=== PATIENT | female | born 1995 | race Caucasian/White ===

== ENCOUNTER 2016-06-10 18:02 | Emergency (ER) | payer OTHER ==
[2016-06-10 18:21] VITALS: BP 135/72
--- NOTE | 2016-06-10 18:49 | UC ---
Dental HPI - HPI Summary HPI Summary: C/o pain & swelling to right side of lower jaw x2 days. Pt has broken teeth in the area due to poor dental care as a child. She is here with ADRIAN Oh. Sx got worse this morning. No fevers or chills, but does note swelling in area. No obvious abscess. Denies . She is nursing 1 mo old baby. Feels fine otherwise. - History of Current Complaint Chief Complaint: UCDentalProblem Stated Complaint: MOUTH INFECTION Time Seen by Provider: 06/10/16 18:48 Hx Last Menstrual Period: 1 yr ago - had a baby 1 mo ago & - Allergies/Home Medications Allergies/Adverse Reactions: Allergies Allergy/AdvReac Type Severity Reaction Status Date / Time No Known Allergies Allergy Verified 06/10/16 18:15 Home Medications: Home Medications Ibuprofen TAB* [Advil TAB*] 400 mg PO Q6H PRN 06/10/16 [History Confirmed ] PMH/Surg Hx/FS Hx/Imm Hx Previously Healthy: Yes - Surgical History Surgical History: Yes Surgery Procedure, Year, and Place: tonsillectomy - Family History Known Family History: Positive: Diabetes - GM - Social History Alcohol Use: None Substance Use Type: None Smoking Status (MU): Light Every Day Tobacco Smoker Type: Cigarettes Amount Used/How Often: 2-3 cigarettes a day Length of Time of Smoking/Using Tobacco: 4 yrs Review of Systems Constitutional: Negative Skin: Negative Eyes: Negative ENT: Dental Pain Respiratory: Negative Cardiovascular: Negative Gastrointestinal: Negative Genitourinary: Negative Motor: Negative Neurovascular: Negative Musculoskeletal: Negative Neurological: Negative Psychological: Negative All Other Systems Reviewed And Are Negative: Yes Physical Exam Triage Information Reviewed: Yes Appearance: Well-Appearing, Well-Nourished, Pain Distress - mild - moderate Vital Signs: Initial Vital Signs Temp 99.0 F 06/10/16 18:16 Pulse 68 06/10/16 18:16 Resp 16 06/10/16 18:16 BP 135/72 06/10/16 18:16 Pulse Ox 100 06/10/16 18:16 Vital Signs Reviewed: Yes Eye Exam: Normal Eyes: Positive: Conjunctiva Clear ENT: Positive: Hearing grossly normal, Pharynx normal, TMs normal. Negative: Pharyngeal erythema, Nasal drainage, Tonsillar swelling, Tonsillar exudate Dental: Positive: Dental Fracture @ - #26 & #27 (front lower rt teeth). tender at gum line with small abscess at base of 27. Neck: Positive: Supple, Other: - tender at right anterior cx neck and rt mandible.. Negative: Nuchal Rigidity Respiratory Exam: Normal Respiratory: Positive: Lungs clear, Normal breath sounds, No respiratory distress, No accessory muscle use Cardiovascular Exam: Normal Cardiovascular: Positive: RRR, No Murmur, Pulses Normal, Brisk Capillary Refill Abdominal Exam: Normal Abdomen Description: Positive: Nontender, Soft Musculoskeletal Exam: Normal Neurological Exam: Normal Psychological Exam: Normal Skin Exam: Normal Dental Complaint Course/Dx - Differential Dx/Diagnosis Differential Diagnosis/Dx: Dental Abscess, Dental Caries, Fractured Tooth, Mandibular Trauma, Maxillary Trauma, Peridontic Disease Provider Diagnoses: Dental fracture, dental abscess Discharge - Discharge Plan Condition: Stable Disposition: HOME Prescriptions: Amoxicillin (*) [Amoxicillin 875 MG (*)] 875 mg PO BID #20 tab Patient Education Materials: Dental Abscess (ED) Referrals: No Primary Care Phys,NOPCP [Primary Care Provider] - Additional Instructions: We have given you a list of dentists - make sure to call one tomorrow for follow up. Make sure you take a probiotc every day while you are on the antibiotics.
== END 2016-06-10 19:05 | disposition home or self-care (01) ==
LOC: UCCORT 18:02
DX: K03.81 Cracked tooth (principal); K02.9 Dental caries, unspecified; K04.7 Periapical abscess without sinus; F17.210 Nicotine dependence, cigarettes, uncomplicated
CPT/HCPCS: 99212; G0463

== ENCOUNTER 2016-12-01 16:49 | Emergency (ER) | payer OTHER ==
[2016-12-01 17:34] VITALS: BP 105/64
--- NOTE | 2016-12-01 17:46 | UC ---
Throat Pain/Nasal Juan Miguel HPI - HPI Summary HPI Summary: 21F presents with nasal congestion for a day. She states that he son is sick with similar symptoms and she does not want to be sick when he is getting better. she denies any cough, ear pain, sore throat, abdominal pain, n/v/d or fever. has not tried anything. - History of Current Complaint Chief Complaint: UCRespiratory Stated Complaint: COLD Time Seen by Provider: 12/01/16 17:19 Hx Last Menstrual Period: "last week" - Allergies/Home Medications Allergies/Adverse Reactions: Allergies Allergy/AdvReac Type Severity Reaction Status Date / Time No Known Allergies Allergy Verified 12/01/16 17:30 Home Medications: Home Medications medroxyPROGESTERone ACETATE* [DEPO-Provera] 150 mg IM SEE INSTRUCTIONS 12/01/16 [History Confirmed 12/01/16] PMH/Surg Hx/FS Hx/Imm Hx Endocrine History: Other Other Endocrine History: no DM Cardiovascular History: Other Other Cardiovascular History: no HTN - Surgical History Surgical History: Yes Surgery Procedure, Year, and Place: tonsillectomy - Family History Known Family History: Positive: Diabetes - GM - Social History Alcohol Use: None Substance Use Type: None Smoking Status (MU): Former Smoker Type: Cigarettes Amount Used/How Often: 2-3 cigarettes a day Length of Time of Smoking/Using Tobacco: 4 yrs - Immunization History Most Recent Influenza Vaccination: Not the 2016/2017 Season Review of Systems Constitutional: Negative ENT: Sinus Congestion Respiratory: Negative Cardiovascular: Negative All Other Systems Reviewed And Are Negative: Yes Physical Exam Triage Information Reviewed: Yes Appearance: Well-Appearing Vital Signs: Initial Vital Signs Temp 97.9 F 12/01/16 17:30 Pulse 80 12/01/16 17:30 Resp 16 12/01/16 17:30 BP 105/64 12/01/16 17:30 Pulse Ox 99 12/01/16 17:30 Vital Signs Reviewed: Yes Eyes: Positive: Conjunctiva Clear ENT: Positive: Pharynx normal, Nasal congestion, TMs normal Neck: Positive: Supple, Nontender, No Lymphadenopathy Respiratory: Positive: Lungs clear, Normal breath sounds Cardiovascular: Positive: RRR Abdomen Description: Positive: Nontender, Soft Bowel Sounds: Positive: Present Musculoskeletal Exam: Normal Neurological Exam: Normal Psychological Exam: Normal Skin Exam: Normal Throat Pain/Nasal Course/Dx - Course Course Of Treatment: 21F presents with nasal congestion for a day. She states that he son is sick with similar symptoms and she does not want to be sick when he is getting better. she denies any cough, ear pain, sore throat, abdominal pain, n/v/d or fever. has not tried anything. lungs CTA. nose sinus congestion present. will treat with flonase. patient understands and agrees with plan. - Differential Dx/Diagnosis Differential Diagnosis/HQI/PQRI: Influenza, Sinusitis, URI Provider Diagnoses: rhinosinusitis Discharge - Discharge Plan Condition: Good Disposition: HOME Prescriptions: Fluticasone NASAL SPRAY 50MCG* [Flonase NASAL SPRAY 50MCG*] 1 spray BOTH NARES DAILY #1 btl Patient Education Materials: Rhinosinusitis (ED) Referrals: [facility] [Outside] Additional Instructions: Use saline spray in nose as much as needed Use humidifier in room or can use warm water in bowls Use intranasal steroid one spray each nostril twice a day Take Tylenol or ibuprofen for headache every 6 hours Establish care with primary to follow up with Return to ED if develop any new or worsening symptoms
== END 2016-12-01 18:01 | disposition home or self-care (01) ==
LOC: UCCORT 16:49
DX: J32.9 Chronic sinusitis, unspecified (principal); Z87.891 Personal history of nicotine dependence
CPT/HCPCS: 99212; G0463

== ENCOUNTER 2017-11-04 16:01 | Emergency (ER) | payer OTHER ==
--- NOTE | 2017-11-04 16:19 | UC ---
Throat Pain/Nasal Juan Miguel HPI - HPI Summary HPI Summary: 22 yo female presents with sore throat and right tooth pain with jaw swelling. She tells me that about a week ago she noticed some right lower jaw swelling and tooth pain - she knows that she has a broken tooth in this area. She has a dentist, but does not like to go because she hates dentists. She had an old prescription of Augmentin at home that she has been taking one pill once a day for a week - with no change in symptoms. She is able to eat and drinking without much difficulty. She is also concerned that she may be and is requesting a test today. Her last period was more than 30 days ago and she has had unprotected intercourse in this time. Denies fever, chills, cough, SOB, chest pain, n/v, or rash. - History of Current Complaint Stated Complaint: SORE/SWOLLEN THROAT Time Seen by Provider: 11/04/17 16:19 Hx Last Menstrual Period: "last week" Onset/Duration: Sudden Onset Severity: Mild Pain Intensity: 3 Pain Scale Used: 0-10 Numeric - Allergies/Home Medications Allergies/Adverse Reactions: Allergies Allergy/AdvReac Type Severity Reaction Status Date / Time No Known Allergies Allergy Verified 11/04/17 16:17 Home Medications: Home Medications Amoxicillin PO (*) [Amoxicillin 875 MG (*)] 437.5 mg PO BID 11/04/17 [History Confirmed 11/04/17] Buprenorphine/Naloxone SL TAB* [Suboxone 8-2 mg SL TAB*] 1 tab.sl SL BID [History Confirmed 11/04/17] Glecaprevir/Pibrentasvir [Mavyret 100-40 mg Tablet] 3 each PO DAILY 11/04/17 [ History Confirmed 11/04/17] PMH/Surg Hx/FS Hx/Imm Hx - Additional Past Medical History Additional PMH: Hep C - Surgical History Surgical History: Yes Surgery Procedure, Year, and Place: tonsillectomy - Family History Known Family History: Positive: Diabetes - GM - Social History Lives: With Family Alcohol Use: None Substance Use Type: None Smoking Status (MU): Former Smoker Type: Cigarettes Amount Used/How Often: 2-3 cigarettes a day Length of Time of Smoking/Using Tobacco: 4 yrs - Immunization History Most Recent Influenza Vaccination: Not the Season Review of Systems Constitutional: Negative Skin: Negative Eyes: Negative ENT: Dental Pain, Sore Throat Respiratory: Negative Cardiovascular: Negative Gastrointestinal: Negative Neurovascular: Negative Neurological: Negative Psychological: Negative All Other Systems Reviewed And Are Negative: Yes Physical Exam - Summary Physical Exam Summary: GENERAL: NAD. WDWN. No pain distress. SKIN: No rashes, sores, lesions, or open wounds. HEENT: Head: AT/NC Nose: Nasal mucosa pink and moist. NTTP maxillary and frontal sinus. Throat: Posterior oropharynx without exudates, erythema, or tonsillar enlargement. Uvula midline. NECK: Supple. RIGHT LOWER JAW with moderate edema and TTP. Right anterior cervical lymph node 1.0cm in size mild TTP. CHEST: CTAB. No r/r/w. No accessory muscle use. Breathing comfortably and in no distress. CV: RRR. Without m/r/g. Pulses intact. Cap refill <2seconds NEURO: Alert. PSYCH: Age appropriate behavior. Triage Information Reviewed: Yes Vital Signs: Vital Signs: Temp Pulse Resp BP Pulse Ox 97.9 F 80 16 127/67 100 11/04/17 16:14 11/04/17 16:14 11/04/17 16:14 11/04/17 16:14 11/04/17 16:14 Vital Signs Reviewed: Yes Dental: Positive: Percussion Tenderness @ - Tooth 31, Gross Decay/Caries @ - Throughout, Dental Fracture @ - Tooth 31, Abscess @ - Tooth 31. Negative: Cellulitis @, Cervical Lymphadenopathy, Bleeding Throat Pain/Nasal Course/Dx - Course Course Of Treatment: Tooth 31 abscess. Given her improper use of Augmentin, this makes antibiotic selection more challenging. I strongly encouraged her to schedule a f/u appointment with a dentist. Will have her take her Augmentin BID for 7 days or until she runs out of medication and will add Doxycycline BID. If her swelling/pain worsen she should go to the ED for further eval and treatment. - Differential Dx/Diagnosis Provider Diagnoses: Tooth 31 abscess Discharge - Sign-Out/Discharge Documenting (check all that apply): Patient Departure All imaging exams completed and their final reports reviewed: No Studies - Discharge Plan Condition: Stable Disposition: HOME Prescriptions: DOXYcycline CAP(*) [DOXYcycline 100MG CAP(*)] 100 mg PO BID #20 cap Patient Education Materials: Dental Abscess (ED) Referrals: No Primary Care Phys,NOPCP [Primary Care Provider] - Additional Instructions: If you develop a fever, shortness of breath, chest pain, new or worsening symptoms - please call your PCP or go to the ED. 1) Continue taking your Augmentin 1 tablet TWICE A DAY until completed 2) If your symptoms worsen - please go to the ER - Billing Disposition and Condition Condition: STABLE Disposition: Home
[2017-11-04 16:26] VITALS: BP 127/67
== END 2017-11-04 16:58 | disposition home or self-care (01) ==
LOC: UCCORT 16:01
DX: K04.7 Periapical abscess without sinus (principal); B19.20 Unspecified viral hepatitis C without hepatic coma; Z87.891 Personal history of nicotine dependence
CPT/HCPCS: 84702; 87651; 99212; G0463

== ENCOUNTER → 2018-01-21 18:01 | Emergency (ER) | payer OTHER ==
[~2018-01-21 18:01] MED LIST: Polymyx/Trimethoprim OPTH* 10 ML BTL RIGHT EYE ONE
--- NOTE | 2018-01-21 18:12 | UC ---
Eye Complaint HPI - HPI Summary HPI Summary: awoke with right eye slightly swollen injected, clear drainage---no contacts or visual deficits - History of Current Complaint Chief Complaint: UCEye Stated Complaint: RT EYE COMPLAINT Time Seen by Provider: 01/21/18 18:06 Hx Obtained From: Patient Hx Last Menstrual Period: end of last month ?: No Onset/Duration: Sudden Onset, Lasting Days - 1 Timing: Constant Severity Initially: Mild Severity Currently: Mild Location of Injury: Conjunctiva Aggravating Factor(s): Nothing Alleviating Factor(s): Nothing Associated Signs And Symptoms: Positive: Drainage (Clear) - Allergies/Home Medications Allergies/Adverse Reactions: Allergies Allergy/AdvReac Type Severity Reaction Status Date / Time No Known Allergies Allergy Verified 01/21/18 18:15 PMH/Surg Hx/FS Hx/Imm Hx Previously Healthy: Yes - Opiate abuse disorder in remission - Surgical History Surgical History: Yes Surgery Procedure, Year, and Place: tonsillectomy - Family History Known Family History: Positive: Diabetes - GM - Social History Lives: With Family Alcohol Use: None Substance Use Type: None Smoking Status (MU): Light Every Day Tobacco Smoker Type: Cigarettes Amount Used/How Often: 2-3 cigarettes a day Length of Time of Smoking/Using Tobacco: ~2013 - Immunization History Most Recent Influenza Vaccination: Not the 2016/2017 Season Review of Systems All Other Systems Reviewed And Are Negative: Yes Constitutional: Positive: Negative Skin: Positive: Negative Eyes: Positive: Drainage - right, Eye Redness - right ENT: Positive: Negative Respiratory: Positive: Negative Cardiovascular: Positive: Negative Gastrointestinal: Positive: Negative Genitourinary: Positive: Negative Motor: Positive: Negative Neurovascular: Positive: Negative Musculoskeletal: Positive: Negative Neurological: Positive: Negative Psychological: Positive: Negative Is Patient Immunocompromised?: No Physical Exam Triage Information Reviewed: Yes Appearance: Well-Appearing, No Pain Distress, Well-Nourished Vital Signs Reviewed: Yes Eye Exam: Normal - left Eyes: Positive: Conjunctiva Inflamed - right, Discharge - right ENT Exam: Normal ENT: Positive: Normal ENT inspection, Hearing grossly normal. Negative: Nasal congestion, Nasal drainage, TMs normal, Trismus, Muffled voice, Hoarse voice, Dental tenderness, Sinus tenderness Dental Exam: Normal Neck exam: Normal Neck: Positive: Supple, Nontender, No Lymphadenopathy Respiratory Exam: Normal Respiratory: Positive: Chest non-tender, No respiratory distress, No accessory muscle use Cardiovascular Exam: Normal Cardiovascular: Positive: RRR, Pulses Normal, Brisk Capillary Refill Musculoskeletal Exam: Normal Musculoskeletal: Positive: Strength Intact, ROM Intact, No Edema Neurological Exam: Normal Neurological: Positive: Alert, Muscle Tone Normal Psychological Exam: Normal Skin Exam: Normal Eye Complaint Course/Dx - Course Course Of Treatment: change eye make up, polytrim eye drops follow with pcp if fails to resolve in 3-5 days - Differential Dx/Diagnosis Provider Diagnosis: Conjunctivitis, right eye Discharge - Sign-Out/Discharge Documenting (check all that apply): Patient Departure All imaging exams completed and their final reports reviewed: No Studies - Discharge Plan Condition: Stable Disposition: HOME Prescriptions: Polymyx/Trimethoprim OPTH* [Polytrim OPHTH*] 1 drop RIGHT EYE QID 7 Days #1 btl Patient Education Materials: How to Use Eye Drops (ED), Conjunctivitis (ED) Referrals: Rosemarie Garduno [Primary Care Provider] - If Needed - Billing Disposition and Condition Condition: STABLE Disposition: Home
[2018-01-21 18:15] VITALS: BP 116/65
== END | disposition home or self-care (01) ==
LOC: UCCORT 18:01
DX: H10.9 Unspecified conjunctivitis (principal); F17.210 Nicotine dependence, cigarettes, uncomplicated

== ENCOUNTER 2018-04-02 18:33 | Emergency (ER) | payer OTHER ==
[2018-04-02 18:55] VITALS: BP 118/72
--- NOTE | 2018-04-02 19:27 | UC ---
Respiratory Complaint HPI - HPI Summary HPI Summary: C/O cough x 1 week with thick mucus. Wheezing cough at night. - History of Current Complaint Chief Complaint: UCRespiratory Stated Complaint: COUGH Time Seen by Provider: 04/02/18 19:01 Hx Obtained From: Patient Hx Last Menstrual Period: 04/01/18 ?: No Onset/Duration: Gradual Onset, Lasting Weeks - 1, Still Present Severity Initially: Mild Severity Currently: Moderate Pain Intensity: 0 Character: Cough: Productive Aggravating Factors: Deep Breaths, Recumbent Position Alleviating Factors: Nothing Associated Signs And Symptoms: Positive: Wheezing, URI, Nasal Congestion. Negative: Fever, Chills, Sinus Discomfort - Allergies/Home Medications Allergies/Adverse Reactions: Allergies Allergy/AdvReac Type Severity Reaction Status Date / Time No Known Allergies Allergy Verified 04/02/18 18:55 PMH/Surg Hx/FS Hx/Imm Hx Previously Healthy: Yes - Surgical History Surgical History: Yes Surgery Procedure, Year, and Place: tonsillectomy - Family History Known Family History: Positive: Diabetes - GM - Social History Occupation: Employed Full-time Lives: With Family Alcohol Use: None Substance Use Type: None Smoking Status (MU): Light Every Day Tobacco Smoker Type: Cigarettes Amount Used/How Often: 2-3 cigarettes a day Length of Time of Smoking/Using Tobacco: ~2013 - Immunization History Most Recent Influenza Vaccination: Not the Season Review of Systems All Other Systems Reviewed And Are Negative: Yes ENT: Positive: Nasal Discharge Respiratory: Positive: Cough Is Patient Immunocompromised?: No Physical Exam Triage Information Reviewed: Yes Appearance: Well-Appearing, No Pain Distress, Well-Nourished Vital Signs: Initial Vital Signs Temp 98.4 F 04/02/18 18:53 Pulse 79 04/02/18 18:53 Resp 16 04/02/18 18:53 BP 118/72 04/02/18 18:53 Pulse Ox 100 04/02/18 18:53 Vital Signs Reviewed: Yes Eyes: Positive: Conjunctiva Clear ENT: Positive: Pharynx normal, Nasal congestion - with allergic changes, TMs normal. Negative: Sinus tenderness Neck exam: Normal Respiratory: Positive: Wheezing - expiratory wheeze with coughing Cardiovascular Exam: Normal Musculoskeletal Exam: Normal Neurological Exam: Normal Psychological Exam: Normal Skin Exam: Normal UC Diagnostic Evaluation - Laboratory O2 Sat by Pulse Oximetry: 100 Respiratory Course/Dx - Differential Dx/Diagnosis Differential Diagnosis/HQI/PQRI: Asthma, Lower Resp Infection, Sinusitis Provider Diagnosis: Upper respiratory infection, Bronchospasm, acute Discharge - Sign-Out/Discharge Documenting (check all that apply): Patient Departure All imaging exams completed and their final reports reviewed: No Studies - Discharge Plan Condition: Stable Disposition: HOME Prescriptions: predniSONE TAB* [Deltasone 20 MG TAB*] 60 mg PO DAILY #18 tab Patient Education Materials: Upper Respiratory Infection (DC), Wheezing (ED), Prednisone (By mouth) Referrals: Rosemarie Garduno [Primary Care Provider] - - Billing Disposition and Condition Condition: STABLE Disposition: Home
== END 2018-04-02 19:37 | disposition home or self-care (01) ==
LOC: UCCORT 18:33
DX: J98.01 Acute bronchospasm (principal); J06.9 Acute upper respiratory infection, unspecified; F17.210 Nicotine dependence, cigarettes, uncomplicated
CPT/HCPCS: 99212; G0463